=== PATIENT | female | born 1990 | race Caucasian/White ===

== ENCOUNTER 2022-05-04 13:59 | Outpatient (REF) | payer OTHER, SELFPAY | END 2022-05-04 14:00 | disposition home or self-care (01) | LOC: HO.MDS 13:59 | PROVIDERS: Visit Provider Internal Medicine Medical Oncology | DX: D50.9 Iron deficiency anemia, unspecified (principal); K90.0 Celiac disease | CPT/HCPCS: 96365; J1756 ==

== ENCOUNTER 2022-05-05 15:11 | Outpatient (REF) | payer OTHER, SELFPAY | END 2022-05-05 15:12 | disposition home or self-care (01) | LOC: HO.MDS 15:11 | PROVIDERS: PCP Internal Medicine; Visit Provider Internal Medicine Medical Oncology | DX: D50.9 Iron deficiency anemia, unspecified (principal); K90.0 Celiac disease | CPT/HCPCS: 96365; J1756 ==

== ENCOUNTER 2022-06-03 12:56 | Outpatient (REF) | payer OTHER, SELFPAY | END 2022-06-03 12:57 | disposition home or self-care (01) | LOC: HO.MDS 12:56 | PROVIDERS: Visit Provider Internal Medicine Medical Oncology | DX: D50.9 Iron deficiency anemia, unspecified (principal); K90.0 Celiac disease | CPT/HCPCS: 96365; 96372; J1756 ==

== ENCOUNTER 2022-06-08 14:37 | Outpatient (REF) | payer OTHER, SELFPAY | END 2022-06-08 14:38 | disposition home or self-care (01) | LOC: HO.MDS 14:37 | PROVIDERS: Visit Provider Internal Medicine Medical Oncology | DX: D50.9 Iron deficiency anemia, unspecified (principal); K90.0 Celiac disease | CPT/HCPCS: 96365; J1756 ==

== ENCOUNTER 2022-06-10 12:02 | Outpatient (REF) | payer OTHER, SELFPAY ==
[2022-06-10 13:42] LABS: MANUAL DIFF FLAG NO
[2022-06-10 13:44] LABS: Basophils Absolute Auto 0.1 X10*3/uL (0.0-0.2); Basophils Percent Auto 1.1 % (0-2); Eosinophils Absolute Auto 0.5 X10*3/uL (0.0-0.4); Eosinophils Percent Auto 5.9 % (0-4); Hematocrit 37.8 % (37.0-47.0); Hemoglobin 11.7 g/dl (12.0-16.0); Imm Gran Abs Auto 0.02 X10*3/uL (0.00-0.03); Imm Gran Pct Auto 0.2 % (0.0-0.4); Lymphocytes Absolute Auto 2.5 X10*3/uL (1.2-4.9); Lymphocytes Percent Auto 31.7 % (20-40); Mean Corpuscular Hemoglobin 24.8 pg (27.0-33.0); Mean Corpuscular Volume 80.1 fL (80.0-98.0); Mean Platelet Volume 9.1 fL (9.4-12.3); Monocytes Absolute Auto 0.5 X10*3/uL (0.1-1.2); Monocytes Percent Auto 6.5 % (2-11); Neutrophils Absolute Auto 4.4 x10*3/uL (2.0-8.3); Neutrophils Percent Auto 54.6 % (45-73); Platelet Count 312 X10*3/uL (160-400); Red Blood Count 4.72 X10*6/uL (4.20-5.50); Red Cell Distribution Width 20.1 % (11.0-16.0)
[2022-06-10 14:14] LABS: Alanine Aminotransferase 26 U/L (0-31); Albumin Level 3.9 g/dL (3.5-5.0); Alkaline Phosphatase 70 U/L (39-117); Anion Gap 11 (12-20); Aspartate Amino Transferase 22 U/L (5-31); Bilirubin Total 0.3 mg/dL (0.0-1.0); Blood Urea Nitrogen 12 mg/dL (9-16); Calcium 8.9 mg/dL (8.4-10.2); Carbon Dioxide 25 mmol/L (22-29); Chloride 107 mmol/L (96-108); Estimated Glomerular Filt Rate > 60; Glucose Random 79 mg/dL (60-115); Potassium 4.3 mmol/L (3.3-5.1); Sodium 139 mmol/L (135-145); Total Protein 6.5 g/dL (6.5-8.0)
[2022-06-10 14:28] LABS: Ferritin 329 ng/mL (10-122)
== END 2022-06-10 12:03 | disposition home or self-care (01) ==
LOC: HO.MDS 12:02
PROVIDERS: Visit Provider Internal Medicine Medical Oncology
DX: D50.9 Iron deficiency anemia, unspecified (principal); K90.0 Celiac disease
CPT/HCPCS: 36415; 80053; 82728; 85025; 96365; J1756